=== PATIENT | female | born 2000 | race Asian ===

== ENCOUNTER 2021-06-25 15:25 | Emergency (ER) | payer OTHER ==
[~2021-06-25] VITALS: Ht 154.9 cm; Wt 56.8 kg
[2021-06-25] MEDS ORDERED: PREN1CHW6 PO (15:42)
[2021-06-25] MEDS ORDERED: NS 1,000 ML IV ONE (19:00)
[2021-06-25 20:03] LABS: RSV AMPLIFICATION NEGATIVE (NEGATIVE)
[2021-06-25 20:04] LABS: BASO % 0.3 % (0.0-1.0); EOS % 0.2 % (0.0-3.0); HEMATOCRIT 39.2 % (36.0-47.0); HEMOGLOBIN 13.2 g/dl (12.0-15.5); LYMPH % 16.9 % (24.0-44.0); MEAN CORPUSCULAR HEMOGLOBIN 30.4 pg (27.0-33.0); MEAN CORPUSCULAR HGB CONC 33.7 g/dl (32.0-36.5); MEAN CORPUSCULAR VOLUME 90.3 fl (80.0-96.0); MONO # 0.7 10^3/uL (0.0-0.8); MONO % 5.9 % (2.0-8.0); NEUTROPHILS # 8.9 10^3/uL (1.5-8.5); NEUTROPHILS % 76.3 % (36.0-66.0); PLATELET COUNT, AUTOMATED 226 10^3/uL (150-450); RED BLOOD COUNT 4.34 10^6/uL (4.00-5.40); WHITE BLOOD COUNT 11.7 10^3/uL (4.0-10.0)
--- NOTE | 2021-06-25 20:05 | REP ---
INDICATION: VAGINAL BLEEDING. COMPARISON: None. TECHNIQUE: Transabdominal imaging using the bladder as an acoustic window. FINDINGS: Scanning demonstrates a viable single intrauterine gestation in a cephalic lie. motion is observed and heart rate is recorded at 144 beats per minute. An anterior, grade zero placenta is seen without evidence of previa. No visible subchorionic bleed. Amniotic fluid is subjectively normal. Closed cervical length is measured at 4 cm cm transabdominally. No extrauterine abnormality is observed. Biometry chart: CRL 7.6 cm 13 weeks 5 days BPD 2.6 cm; 14 weeks 3 days Head circumference 9.1 cm; 14 weeks 1 days Abdominal circumference 8.2 cm; 14 weeks 4 days Femur length 1 point cm; 14 weeks 2 days Humeral length 1.4 cm; 13 weeks 6 days HC/AC ratio normal 1.11 Cephalic index normal 0.81 Estimated weight 97 grams, 0 pounds 3 ounces. IMPRESSION: Viable single intrauterine gestation at 14 weeks 1 days by today's composite sonographic criteria. Expected gestational age estimate based on LMP is 13 weeks is 3 days. NOEMI by prior sonography 12/28/2021. NOEMI based on composite criteria today 12/23/2021. Anterior grade 0 placenta without previa. No visible subchorionic bleed <Electronically signed by Kevon Geronimo > 06/25/212000
--- NOTE | 2021-06-25 20:32 | ECGEPIP ---
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
[2021-06-25 20:35] LABS: BLOOD UREA NITROGEN 11 MG/DL (7-18); CALCIUM LEVEL 8.9 MG/DL (8.5-10.1); CARBON DIOXIDE LEVEL 25 MEQ/L (21-32); CHLORIDE LEVEL 107 MEQ/L (98-107); CREATININE FOR GFR 0.67 MG/DL (0.55-1.30); GLUCOSE, FASTING 83 MG/DL (70-100); POTASSIUM SERUM 3.9 MEQ/L (3.5-5.1); SODIUM LEVEL 138 MEQ/L (136-145)
[2021-06-25 20:36] LABS: ALBUMIN 3.6 GM/DL (3.2-5.2); ALT/SGPT 21 U/L (12-78); BILIRUBIN,TOTAL 0.3 MG/DL (0.2-1.0); TOTAL PROTEIN 7.2 GM/DL (6.4-8.2)
[2021-06-25 21:32] LABS: APPEARANCE, URINE HAZY (CLEAR); BACTERIA, URINE AUTO 1+ (NEGATIVE); BILIRUBIN, URINE AUTO NEGATIVE (NEGATIVE); BLOOD, URINE BLOOD NEGATIVE (NEGATIVE); CALCIUM OXALATE CRYSTALS SMALL; COLOR, URINE YELLOW (YELLOW); GLUCOSE, URINE (UA) AUTO NEGATIVE (NEGATIVE); KETONE, URINE AUTO 1+ mg/dL (NEGATIVE); LEUKOCYTE ESTERASE, URINE AUTO 3+ (NEGATIVE); MUCUS, URINE SMALL (NEGATIVE); NITRITE, URINE AUTO NEGATIVE (NEGATIVE); PROTEIN, URINE AUTO 2+ mg/dL (NEGATIVE); RBC, URINE AUTO 4 /HPF (0-3); SPECIFIC GRAVITY URINE AUTO 1.024 (1.002-1.035); SQUAMOUS EPITHELIAL CELL UR AU 5 /HPF (0-6); UROBILINOGEN, URINE AUTO 0.2 mg/dL (0.0-2.0); WBC, URINE AUTO 6 /HPF (0-3)
[2021-06-25 21:40] VITALS: BP 116/59
== END 2021-06-25 22:46 | disposition home or self-care (01) ==
LOC: M ED 15:25
DX: E86.0 Dehydration (principal); R00.2 Palpitations; Z3A.14 14 weeks gestation of pregnancy; R00.0 Tachycardia, unspecified; Z88.0 Allergy status to penicillin